=== PATIENT | male | born 1975 | race Caucasian/White ===

== ENCOUNTER 2016-09-26 04:02 | Emergency (ER) | payer OTHER ==
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
--- NOTE | 2016-09-26 08:55 | ED ORDER SUMMARY ---
..... Patient: BETO NAVARRO OrderSheet [facility] VisitID: [id number] [place] [address] 41y, M Registration Date/Time: 09/26/2016 ORDER SHEET Weight: 80.7 kg (stated) Allergies: No Known Drug Allergy GENERAL ORDERS: CT Cervical Spine wo Cont Urgent (04:14 09/26/2016 Aj Mantilla) (Ack 4:20 IJurca ER Tech1) (4:26 JBullard R.N.) CT Head wo Cont Urgent (04:14 09/26/2016 Aj Mantilla) (Ack 4:20 IJurca ER Tech1) (4:26 JBullard R.N.) CT Sinus/Facial Bones wo Cont Urgent (04:14 09/26/2016 Aj Mantilla) (Ack 4:20 IJurca ER Tech1) (4:26 JBullard R.N.) MEDICATION ORDERS: Tdap IM 0.5 mL (NOW, per protocol) (08:33 09/26/2016 Aj Mantilla) (Ack 8:40 MWinterer R.N.) (8:50 MWinterer R.N.) IV FLUIDS: IV NS : initial bolus 1000 mL (1000 mL/hr), then none - for X1 (NOW) (04:15 09/26/2016 Aj Mantilla) (4:22 JBdonnell R.N.) IV#2 NS : initial bolus none -, then 150 mL/hr (NOW) (06:39 09/26/2016 Jacinta Alberto verbal order read back to Aj Mantilla) (6:47 Jacinta R.NManuelito) ORDER SHEET NOTES: [Electronically signed by Stephanie Pantoja R.N. (09:39 09/26/2016)] [Electronically signed by Ritchie Dykes Dr. (10:21 09/29/2016)] [Electronically locked/signed by Stephanie Pantoja R.N. (09:39 09/26/2016)]
--- NOTE | 2016-09-26 08:55 | ED ORDER SUMMARY ---
..... Patient: BETO NAVARRO OrderSheet [facility] VisitID: [id number] [place] [address] 41y, M Registration Date/Time: 09/26/2016 ORDER SHEET Weight: 80.7 kg (stated) Allergies: No Known Drug Allergy GENERAL ORDERS: CT Cervical Spine wo Cont Urgent (04:14 09/26/2016 Aj Mantilla) (Ack 4:20 IJurca ER Tech1) (4:26 JBullard R.N.) CT Head wo Cont Urgent (04:14 09/26/2016 Aj Mantilla) (Ack 4:20 IJurca ER Tech1) (4:26 JBullard R.N.) CT Sinus/Facial Bones wo Cont Urgent (04:14 09/26/2016 Aj Mantilla) (Ack 4:20 IJurca ER Tech1) (4:26 JBullard R.N.) MEDICATION ORDERS: Tdap IM 0.5 mL (NOW, per protocol) (08:33 09/26/2016 Aj Mantilla) (Ack 8:40 MWinterer R.N.) (8:50 MWinterer R.N.) IV FLUIDS: IV NS : initial bolus 1000 mL (1000 mL/hr), then none - for X1 (NOW) (04:15 09/26/2016 Aj Mantilla) (4:22 JBdonnell R.N.) IV#2 NS : initial bolus none -, then 150 mL/hr (NOW) (06:39 09/26/2016 Jacinta Alberto verbal order read back to Aj Mantilla) (6:47 Jacinta R.NManuelito) ORDER SHEET NOTES: [Electronically signed by Stephanie Pantoja R.N. (09:39 09/26/2016)] [Electronically signed by Ritchie Dykes Dr. (10:21 09/29/2016)] [Electronically locked/signed by Stephanie Pantoja R.N. (09:39 09/26/2016)]
--- NOTE | 2016-09-29 10:22 | ED DISCHARGE INSTRUCTIONS ---
Patient: BETO NAVARRO General Instructions [facility] VisitID: [id number] [address] [place] [place] [address] 41y, M Registration Date/Time: 09/26/2016 09/26/2016 08:44 BP: 107/61. HR: 116. RR: 18. O2 saturation: 100%. Temp: 98 F. Pain level now: 7/10. Blood pressure normal. Oxygen saturation normal. Closed nasal fracture (acute left-sided). Multiple contusions with abrasion. (right face). need for tetanus booster. INSTRUCTIONS Warnings: GENERAL WARNINGS: Return or contact your physician immediately if your condition worsens or changes unexpectedly, if not improving as expected, or if other problems arise. SPECIFICALLY, return if you develop weakness, numbness, tingling, pain or incontinence. changes in vision, worsening pain, difficulty breathing, or other concerns. Your Current Medications: CONTINUE TAKING THE FOLLOWING MEDICATIONS: None*. Prescription Medications: Percocet 5 mg/325 mg: take 1 tablet orally every 6 hours as needed for pain. Dispense twelve (12). No refill. Substitution is permissible. (Do not mix with alcohol. Will make you sleepy. Us with caution.) OTC Medications: Motrin (available over the counter): take according to label instructions. Follow-up: Return to the emergency department as needed. Follow up with your doctor in three days. Reason for referral: recheck today's concerns. Summary of care provided to patient via paper. Screening today revealed the patient's blood pressure to be in the normal range. The patient should follow up with a primary care provider for blood pressure management. Understanding of the discharge instructions verbalized by patient. Follow-up with: Tu Jerome MD, ENT, , [address], , [place], [id number] Follow up in one week. Reason for referral: recheck today's concerns. Summary of care provided to patient via paper. ADDITIONAL INFORMATION Facial Fracture You have a break (fracture) in one of the bones of the face. A fracture can be small hairline crack in the bone with nothing out of place or a major break with a shifting of the bone out of position. Depending on the location a facial fracture can cause pain with chewing, nasal congestion, sinus pain, and nose bleeding. During the first 24 hours after injury, there may be further swelling or bruising at the site of the fracture or around your eyes. A blow to the face forceful enough to cause a fracture may also cause a concussion or more serious brain injury. Therefore, watch for the warning signs below. Home Care: Apply an ice pack (ice cubes in a plastic bag, wrapped in a towel) over the injured area for 20 minutes every 1-2 hours the first day. Continue with ice packs 3-4 times a day for the next two days, then as needed for the relief of pain and swelling. You may use acetaminophen (Tylenol) or ibuprofen (Motrin, Advil) to control pain, unless another pain medicine was prescribed. [NOTE: If you have chronic liver or kidney disease or ever had a stomach ulcer or GI bleeding, talk with your doctor before using these medicines.] Sleep with your head elevated on 2 or more pillows to reduce swelling. If you have facial pain when eating, avoid crunchy or chewy foods. A softer diet will be more comfortable for the first 2-3 weeks. If you were given antibiotics to prevent an infection, take them until the prescription is finished. If your nose bleeds, sit up and lean forward while pinching the nostrils together for five minutes (by the clock).If bleeding is not controlled, continue to pinch and call your doctor or return to this facility.Do not blow your nose for 12 hours after the bleeding stops. This will allow a strong blood clot to form. Do not pick your nose. Do not use ibuprofen, aspirin or similar drugs since this may promote nose bleeding. Follow Up with your doctor in one week, or as advised by our staff, to be sure the bone is healing properly. [NOTE: A radiologist will review any X-rays that were taken. We will notify you of any new findings that may affect your care.] Get Prompt Medical Attention if any of the following occur: Increasing facial swelling or pain Redness, warmth or pus from the injured area Fever of 100.4F (38C) or higher, or as directed by your healthcare provider Double vision Repeated vomiting Severe or worsening headache or dizziness Unusual drowsiness, or unable to awaken as usual Confusion or change in behavior or speech Convulsion (seizure) Facial Contusion (No Wake-Up) A facial contusion is a bruise with swelling and sometimes bleeding under the skin. The swelling should start to go down within two days. Although there may be no signs of a serious injury at this time, symptoms may appear later which could be a sign of a more serious problem. Therefore, watch for the warning signs below. Home care The following guidelines will help you care for your injury at home: If you have swelling of the face, apply an ice pack (ice cubes in a plastic bag, wrapped in a towel) for 20 minutes every 12 hours until the swelling starts to go down. If you have scrapes or cuts on your face, clean them daily with soap and water. Apply an antibiotic ointment or cream for the first few days to prevent infection. You may use acetaminophen or ibuprofen to control pain, unless another pain medicine was prescribed.If you have chronic liver or kidney disease or ever had a stomach ulcer or GI bleeding, talk with your doctor before using these medicines. Do not use ibuprofen in children under six months of age. For the next 24 hours: Do not take alcohol, sedatives or medicines that make you sleepy. Do not drive or operate machinery. Avoid strenuous activities. No lifting or straining. If you have had any symptoms of aconcussiontoday (nausea, vomiting, dizziness, confusion, headache, memory loss or if you were knocked out), do not return to sports or any activity that could result in another head injury until all symptoms are gone and you have been cleared by your doctor. A second head injury before fully recovering from the first one can lead to serious brain injury. Follow-up care Follow up with your doctor in one week or as directed. Note: Any X-rays or CT scans taken will be reviewed by a radiologist. You will be notified of any new findings that may affect your care. When to seek medical care Get prompt medical attention if any of the following occur: Repeated vomiting Severe or worsening headache or dizziness Unusual drowsiness, or unable to awaken as usual Confusion or change in behavior or speech, memory loss, blurred vision Convulsion (seizure) Increasing scalp or face swelling Redness, warmth or pus from the swollen area Fluid drainage or bleeding from the nose or ears Fever of 100.4F (38C) or higher, or as directed by your health care provider Increasing jaw pain with chewing or increasing pain in the sinuses Nose looks crooked or cannot breathe through your nose after swelling goes down Oxycodone Hydrochloride, Acetaminophen Oral tablet What is this medicine? ACETAMINOPHEN; OXYCODONE (a set a JOSELITO buddy fen; ox i KOE done) is a pain reliever. It is used to treat mild to moderate pain. How should I use this medicine? Take this medicine by mouth with a full glass of water. Follow the directions on the prescription label. Take your medicine at regular intervals. Do not take your medicine more often than directed. Talk to your ion implant machine operator regarding the use of this medicine in children. Special care may be needed. Patients over 65 years old may have a stronger reaction and need a smaller dose. What side effects may I notice from receiving this medicine? Side effects that you should report to your doctor or health acute care physician as soon as possible: allergic reactions like skin rash, itching or hives, swelling of the face, lips, or tongue breathing difficulties, wheezing confusion light headedness or fainting spells severe stomach pain yellowing of the skin or the whites of the eyes Side effects that usually do not require medical attention (report to your doctor or health acute care physician if they continue or are bothersome): dizziness drowsiness nausea vomiting What may interact with this medicine? alcohol antihistamines barbiturates like amobarbital, butalbital, butabarbital, methohexital, pentobarbital, phenobarbital, thiopental, and secobarbital benztropine drugs for bladder problems like solifenacin, trospium, oxybutynin, tolterodine, hyoscyamine, and methscopolamine drugs for breathing problems like ipratropium and tiotropium drugs for certain stomach or intestine problems like propantheline, homatropine methylbromide, glycopyrrolate, atropine, belladonna, and dicyclomine general anesthetics like etomidate, ketamine, nitrous oxide, propofol, desflurane, enflurane, halothane, isoflurane, and sevoflurane medicines for depression, anxiety, or psychotic disturbances medicines for sleep muscle relaxants naltrexone narcotic medicines (opiates) for pain phenothiazines like perphenazine, thioridazine, chlorpromazine, mesoridazine, fluphenazine, prochlorperazine, promazine, and trifluoperazine scopolamine tramadol trihexyphenidyl What if I miss a dose? If you miss a dose, take it as soon as you can. If it is almost time for your next dose, take only that dose. Do not take double or extra doses. Where should I keep my medicine? Keep out of the reach of children. This medicine can be abused. Keep your medicine in a safe place to protect it from theft. Do not share this medicine with anyone. Selling or giving away this medicine is dangerous and against the law. Store at room temperature between 20 and 25 degrees C (68 and 77 degrees F). Keep container tightly closed. Protect from light. This medicine may cause accidental overdose and if it is taken by other adults, children, or pets. Flush any unused medicine down the toilet to reduce the chance of harm. Do not use the medicine after the expiration date. What should I tell my health care provider before I take this medicine? They need to know if you have any of these conditions: brain tumor Crohn's disease, inflammatory bowel disease, or ulcerative colitis drink more than 3 alcohol containing drinks per day drug abuse or addiction head injury heart or circulation problems kidney disease or problems going to the bathroom liver disease lung disease, asthma, or breathing problems an unusual or allergic reaction to acetaminophen, oxycodone, other opioid analgesics, other medicines, foods, dyes, or preservatives or trying to get breast-feeding What should I watch for while using this medicine? Tell your doctor or health acute care physician if your pain does not go away, if it gets worse, or if you have new or a different type of pain. You may develop tolerance to the medicine. Tolerance means that you will need a higher dose of the medication for pain relief. Tolerance is normal and is expected if you take this medicine for a long time. Do not suddenly stop taking your medicine because you may develop a severe reaction. Your body becomes used to the medicine. This does NOT mean you are addicted. Addiction is a behavior related to getting and using a drug for a non-medical reason. If you have pain, you have a medical reason to take pain medicine. Your doctor will tell you how much medicine to take. If your doctor wants you to stop the medicine, the dose will be slowly lowered over time to avoid any side effects. You may get drowsy or dizzy. Do not drive, use machinery, or do anything that needs mental alertness until you know how this medicine affects you. Do not stand or sit up quickly, especially if you are an older patient. This reduces the risk of dizzy or fainting spells. Alcohol may interfere with the effect of this medicine. Avoid alcoholic drinks. There are different types of narcotic medicines (opiates) for pain. If you take more than one type at the same time, you may have more side effects. Give your health care provider a list of all medicines you use. Your doctor will tell you how much medicine to take. Do not take more medicine than directed. Call emergency for help if you have problems breathing. The medicine will cause constipation. Try to have a bowel movement at least every 2 to 3 days. If you do not have a bowel movement for 3 days, call your doctor or health acute care physician. Do not take Tylenol (acetaminophen) or medicines that have acetaminophen with this medicine. Too much acetaminophen can be very dangerous. Many nonprescription medicines contain acetaminophen. Always read the labels carefully to avoid taking more acetaminophen. You have been given the following additional information: Facial Fracture Facial Contusion, No Wakeup Oxycodone Hydrochloride, Acetaminophen Oral tablet (Electronically signed by Ritchie Dykes Dr. 09/29/2016 10:21)
--- NOTE | 2016-09-29 10:22 | ED MAR SUMMARY ---
..... Medication Administration Record [address] [place] [address] Patient: BETO NAVARRO Visit ID: [id number] 41y, M Weight: 80.7 kg Height/Length: 75 in BMI: 22.2 ALLERGIES: No Known Drug Allergy Start 04:22 09/26/2016 Ricco Greenwood R.N. Medication Administered: IV NS (SALINE), Dose: IV Fluids, Bolus: 1000 mL wide open, Dispensed: 1000 mL bag, Site: #1 right AC. Medication Ordered: IV NS : initial bolus 1000 mL (1000 mL/hr), then none - for X1 (NOW). Start 05:30 09/26/2016 Damian Duckworth R.N., Stop 07:00 09/26/2016 Stephanie Pantoja R.N. Medication Administered: IV#2 NS (SALINE), Dose: IV Fluids over 6 hour(s), Rate: 150 mL/hr, Dispensed: 1000 mL bag, Site: #1 right AC. Medication Ordered: IV#2 NS : initial bolus none -, then 150 mL/hr (NOW). Given 08:50 09/26/2016 Stephanie Pantoja R.N. Medication Administered: TDAP [IM], Dose: 0.5 mL IM. Medication Ordered: Tdap IM 0.5 mL (NOW, per protocol).
--- NOTE | 2016-09-29 10:22 | ED MED RECONCILIATION SUMMARY ---
Patient: BETO NAVARRO Medication Reconciliation Report [facility] VisitID: [id number] [place] [address] 41y, M Registration Date/Time: 09/26/2016 Weight: 80.7 kg Height/Length: 75 in. BMI: 22.2 ALLERGIES: No Known Drug Allergy The patient's Home Medications are listed below: NONE. The source(s) of the original Home Medication information: patient The following Medications were given to the patient in the Emergency Department: IV NS IV Fluids bolus 1000 mL wide open, administered: 09/26/2016 4:22:00 AM IV#2 NS IV Fluids bolus 0, then 150 mL/hr, administered: 09/26/2016 5:30:00 AM TDAP [IM] IM 0.5 mL, administered: 09/26/2016 8:50:00 AM The following Medications were prescribed to the patient: Motrin (available over the counter): take according to label instructions. -- Ritchie Dykes Dr. Percocet 5 mg/325 mg: take 1 tablet orally every 6 hours as needed for pain. Dispense twelve (12). No refill. Substitution is permissible.(Do not mix with alcohol. Will make you sleepy. Us with caution.) -- Ritchie Dykes Dr.
--- NOTE | 2016-09-29 10:22 | ED MAR SUMMARY ---
..... Medication Administration Record [facility] [address] [place] [address] Patient: BETO NAVARRO Visit ID: [id number] 41y, M Weight: 80.7 kg Height/Length: 75 in BMI: 22.2 ALLERGIES: No Known Drug Allergy Start 04:22 09/26/2016 Ricco Greenwood R.N. Medication Administered: IV NS (SALINE), Dose: IV Fluids, Bolus: 1000 mL wide open, Dispensed: 1000 mL bag, Site: #1 right AC. Medication Ordered: IV NS : initial bolus 1000 mL (1000 mL/hr), then none - for X1 (NOW). Start 05:30 09/26/2016 Damian Duckworth R.N., Stop 07:00 09/26/2016 Stephanie Pantoja R.N. Medication Administered: IV#2 NS (SALINE), Dose: IV Fluids over 6 hour(s), Rate: 150 mL/hr, Dispensed: 1000 mL bag, Site: #1 right AC. Medication Ordered: IV#2 NS : initial bolus none -, then 150 mL/hr (NOW). Given 08:50 09/26/2016 Stephanie Pantoja R.N. Medication Administered: TDAP [IM], Dose: 0.5 mL IM. Medication Ordered: Tdap IM 0.5 mL (NOW, per protocol).
--- NOTE | 2016-09-29 10:22 | ED MED RECONCILIATION SUMMARY ---
Patient: BETO NAVARRO Medication Reconciliation Report [facility] VisitID: [id number] [place] [address] 41y, M Registration Date/Time: 09/26/2016 Weight: 80.7 kg Height/Length: 75 in. BMI: 22.2 ALLERGIES: No Known Drug Allergy The patient's Home Medications are listed below: NONE. The source(s) of the original Home Medication information: patient The following Medications were given to the patient in the Emergency Department: IV NS IV Fluids bolus 1000 mL wide open, administered: 09/26/2016 4:22:00 AM IV#2 NS IV Fluids bolus 0, then 150 mL/hr, administered: 09/26/2016 5:30:00 AM TDAP [IM] IM 0.5 mL, administered: 09/26/2016 8:50:00 AM The following Medications were prescribed to the patient: Motrin (available over the counter): take according to label instructions. -- Ritchie Dykes Dr. Percocet 5 mg/325 mg: take 1 tablet orally every 6 hours as needed for pain. Dispense twelve (12). No refill. Substitution is permissible.(Do not mix with alcohol. Will make you sleepy. Us with caution.) -- Ritchie Dykes Dr.
== END 2016-09-26 09:30 | disposition home or self-care (01) ==
LOC: ED SRH 04:02
DX: S02.2XXA Fracture of nasal bones, initial encounter for closed fracture (principal); S00.83XA Contusion of other part of head, initial encounter; Y00.XXXA Assault by blunt object, initial encounter; Y92.009 Unspecified place in unspecified non-institutional (private) residence as the place of occurrence of the external cause; Z23 Encounter for immunization